=== PATIENT | female | born 1985 | race Caucasian/White ===

== ENCOUNTER → 2022-02-18 21:20 | Observation (INO) ==
[2022-02-18 11:01] LABS: Basophils # 0.1 K/mcL (0.0-0.2); Basophils % 0.6 %; Eosinophils # 0.1 K/mcL (0.0-0.6); Eosinophils % 0.9 %; Hematocrit 42.2 % (35.3-44.9); Hemoglobin 13.6 g/dL (11.5-15.4); Immature Granulocytes % 0.4 % (0-4); Lymphocytes # 2.7 K/mcL (0.6-4.6); Lymphocytes % 32.4 %; Mean Corpuscular HGB Conc 32.2 g/dL (31.6-35.5); Mean Corpuscular Volume 93.2 fL (83.0-100.0); Mean Platelet Volume 9.5 fL (9.4-12.4); Monocytes # 0.7 K/mcL (0.0-1.3); Monocytes % 8.5 %; Neutrophils # 4.7 K/mcL (1.6-8.9); Platelet Count 294 K/mcL (140-400); Red Blood Count 4.53 M/mcL (3.82-4.97); Red Cell Distribution Width 13.4 % (11.5-14.5); Segmented Neutrophils % 57.2 %; White Blood Count 8.2 K/mcL (4.3-11.1)
[2022-02-18 19:32] VITALS: TEMP 98.8; O2SAT 98
[~2022-02-18 21:20] MED LIST: *HR* FentaNYL (PF) 100 MCG/2 ML VIAL ONE; *HR* HYDROMORPHONE 2 MG/ML VIAL ONE; *HR* HYDROcodone/Acet 5/325 mg TABLET PO ONE; *HR* HYDROmorphone PF 0.5 MG/0.5 ML SYRINGE IVP PRN; *HR* Midazolam HCl 2 MG/2 ML VIAL ONE; *HR* Propofol 200 MG/20 ML VIAL IVP ONE; *HR* Rocuronium Bromide 50 MG/5 ML VIAL ONE; *HR* Succinylcholine 200 MG/10 ML VIAL IVP ONE; Acetaminophen IV 1,000 MG/100 ML BAG IVPB ONE; CeFAZolin Syr 2,000MG/20 ML 2,000 MG/20 ML SYRINGE IVPB ONE; Lidocaine -MPF 2% 2 ML VIAL ONE; Lidocaine HCL 4 ML Topical Solution (Laryng-O-Jet Kit Sterile Pak) TP ONE; Ondansetron 4 MG/2 ML VIAL IVP PRN; Ondansetron 4 MG/2 ML VIAL ONE; Ringers Solution, Lactated 1,000 ML IVC SCH; Scopolamine Patch 1.5 MG PATCH.TD72 ONE; Sugammadex Sodium 200 MG/2 ML VIAL IV ONE
[2022-02-21 15:09] VITALS: BP 114/80; PULSE 72
== END | disposition home or self-care (01) ==
LOC: 1NENUOBS
PROVIDERS: ADMIT Obstetrics & Gynecology; ATTEND Obstetrics & Gynecology